=== PATIENT | male | born 1965 | race Caucasian/White ===

== ENCOUNTER 2019-01-14 15:30 | Emergency (ER) | payer BC ==
--- OUTSIDE RECORDS SUMMARY | 2019-01-14 15:35 | XMS REPORT | Continuity of Care Document ---
:1965 External Reference #:[id number] Author Name Peg Snell Care Team Providers Name Role Phone Vincent Young MD - Internal Care Team Information [place] Weaver Medicine Problems Description No Information Available Social History Type Date Description Comments Sex Unknown ETOH Use Occasionally consumes alcohol Tobacco Use Start: Unknown Patient has never smoked Allergies, Adverse Reactions, Alerts Description No Known Drug Allergies Medications Active Medications SIG Qnty Indications Ordering Provider Date Allopurinol 1 by mouth every Unknown 300mg Tablets day Lisinopril 1 by mouth every Unknown 20mg Tablets day Immunizations Description No Information Available Vital Signs Date Vital Result Comment 03/22/2015 11:58am Height 72 inches 6'0" Weight 270.00 lb Pain Level 8 BMI (Body Mass Index) 36.6 kg/m2 Results Description No Information Available Procedures Description No Information Available Medical Devices Description No Information Available Encounters Description No Information Available Assessments Description No Information Available Plan of Treatment 03/22/2015 - Kathie Hood M.D.M70.21 Olecranon bursitis, right elbowFollow up:Follow up: As needed Functional Status Description No Information Available Mental Status Description No Information Available Referrals Description No Information Available
--- OUTSIDE RECORDS SUMMARY | 2019-01-14 15:35 | XMS REPORT | Continuity of Care Document ---
:1965 External Reference #:[id number] Author Name Vincent Young M.D. Address [address] [place] [address] Care Team Providers Name Role Phone HCP given Care Team Information Cms Expert Unavailable [facility] - Care Team Information Cms Expert [phone] [facility] - Sleep [facility] Care Team Information Cms Expert [phone] Diagnostic Problems Active Problems Provider Date Benign essential hypertension Vincent Young M.D. Onset: 06/13/2011 Gout Vincent Young M.D. Onset: 06/13/2011 Pure hypercholesterolemia Vincent Young M.D. Onset: 06/13/2011 Social History Type Date Description Comments Sex Unknown Tobacco Use Reviewed: 04/22/14 Denies Cigarette Use Smoking Status Reviewed: 04/22/14 Denies Cigarette Use ETOH Use Currently consumes alcohol 3d/wk 6-8 beers Tobacco Use Start: Unknown Non Smoker / No Tobacco Allergies, Adverse Reactions, Alerts Description No Known Drug Allergies Medications Active Medications SIG Qnty Indications Ordering Date Provider Lisinopril Take One Tablet By 90tabs I10 Vincent Young, 10/18/2017 40mg Mouth Every Morning M.D. Tablets For High Blood Pressure Indomethacin 1 three times a day 50caps M10.9 Vincent Young, 10/03/2017 50mg as needed for gout M.D. Capsules flares then reduce as tolerated Atorvastatin Calcium Take One Tablet By 90tabs E78.0 Vincent Young, Mouth Once Daily M.D. 40mg Tablets For High Cholesterol Ziac Take One Tablet By 90tabs Vincent Young, 10/30/2014 2.5-6.25mg Mouth Once Daily M.D. Tablets For Blood Pressure Allopurinol Take One Tablet By 90tabs M10.9 Hector Vincent, 01/26/2010 300mg Mouth Once Daily To M.D. Tablets Prevent Gout Immunizations CPT Code Status Date Vaccine Lot # [id number] Given 11/29/2018 Influenza Virus Vaccine, Quadrivalent, Split, [id number] Preservative Free 30428 Given 10/03/2017 Td Immunization [id number] 26296 Given 12/06/2015 Influenza Virus Vaccine, Quadrivalent, Split, [id number] Preservative Free 80640 Given 12/15/2013 Flu, Split Virus 3Yrs 14213 Given 04/01/2012 Flu, Split Virus 3Yrs 07986 Given 07/15/2008 Adacel or Boostrix, TDaP Vital Signs Date Vital Result Comment 11/29/2018 11:25am BP Systolic 160 mmHg BP Diastolic 98 mmHg Weight 276.00 lb w/shoes 10/08/2018 8:56am BP Systolic 168 mmHg BP Diastolic 96 mmHg BP Systolic Recheck 154 mmHg R arm sitting BP Diastolic Recheck 108 mmHg R arm sitting Height 75 inches 6'3" Weight 282.00 lb BMI (Body Mass Index) 35.2 kg/m2 Results Test Date Facility Test Result H/L Range Note Laboratory test 11/29/2018 [facility] <pending> finding [phone] Pathology Urine Micro 10/08/2018 [facility] House [facility] WBC - 1 Inhouse [facility]a RBC - Ua Casts - [facility]a Epi - Ua Other - Ua Glucose - Ua Bilirubin - Ua Ketones - Ua Specific [place] 1.020 Ua Blood NH Tr Ua PH 6.0 Ua Protein - Ua Urobilinogen - Ua Nitrite - Ua Leukocytes - Laboratory test 10/08/2018 [facility] Pathology SEE RESULT 2 finding [phone] BELOW 1 void, clear, yellow 2 SEE RESULT BELOW Name: JOSE IBARRA : [address]: Vincent Young MD Acct: [id number] Unit: [id number] AGE: 53 Location: [facility] Re10/08/18 SEX: M Status: REG REF SPEC: [id number] REBA: 10/08/[address]: Vincent Young MD REQ: [id number] RECD: 10/08/18 STATUS: SOUT _ ORDERED: LEVEL 4, IMMUNO-FIRST, IMMUNO-ADDL COMMENTS: [id number] FINAL DIAGNOSIS Skin, right upper back, biopsy: -- Basal cell carcinoma, superficial and nodular type. -- Lesional cells extend to the biopsy base. COMMENT: Immunohistochemical stains, with appropriately reacting controls, 4 CK 5/6 and p63, were performed in the evaluation of this lesion and support the diagnosis. Dr. Queen reviewed this case in intradepartmental consultation and agrees with the diagnosis. CLINICAL HISTORY No history given GROSS DESCRIPTION The specimen is received in formalin labeled, Right Upper Back, and consists of a 0.6 x 0.5 cm lea-pink irregular hairbearing skin fragment which is inked, trisected and submitted entirely in one cassette. Signed by and Reported on: Shirley Go MD 10/10/18 1604 END OF REPORT DEPARTMENT OF PATHOLOGY, [address] [place] [address] Nicko Queen M.D. Director [facility] # [id number] Procedures Date Code Description Status 11/29/2018 65802 Excise Malig Lesion 2.1-3CM Trunk/Arm/Leg Completed 10/08/2018 48753 Electrocardiogram Complete Completed 10/08/2018 86647 Shave Skin Lesion .6-1CM Trunk/Arm/Leg Completed Medical Devices Description No Information Available Encounters Type Date Location Provider Dx Diagnosis Office Visit 10/08/2018 Main Office Vincent Young I10 Essential ( primary) 8:55a M.D. hypertension E78.00 Pure hypercholesterolemia, unspecified M10.9 Gout, unspecified D48.5 Neoplasm of uncertain behavior of skin Z12.11 Encounter for screening for malignant neoplasm of colon E66.9 Obesity, unspecified Z00.01 Encounter for general adult medical exam w abnormal findings Z68.35 Body mass index (BMI) 35.0-35.9, adult Assessments Date Code Description Provider 11/29/2018 C44.519 Basal cell carcinoma of skin of other part Vincent Young M.D. of trunk 11/29/2018 Z23 Encounter for immunization Vincent Young M.D. 11/29/2018 Z41.8 Encounter for other procedures for purposes Vincent Young M.D. other than remedying health state 11/29/2018 I10 Essential (primary) hypertension Vincent Young M.D. 10/08/2018 I10 Essential (primary) hypertension Vincent Young M.D. 10/08/2018 E78.00 Pure hypercholesterolemia, unspecified Vincent Young M.D. 10/08/2018 M10.9 Gout, unspecified Vincent Young M.D. 10/08/2018 D48.5 Neoplasm of uncertain behavior of skin Vincent Young M.D. 10/08/2018 Z12.11 Encounter for screening for malignant Vincent Young M.D. neoplasm of colon 10/08/2018 E66.9 Obesity, unspecified Vincent Young M.D. 10/08/2018 Z00.01 Encounter for general adult medical Vincent Young M.D. examination with abnormal findings 10/08/2018 Z68.35 Body mass index (BMI) 35.0-35.9, adult Vincent Young M.D. Plan of Treatment 11/29/2018 - Vincent Young M.D.C44.519 Basal cell carcinoma of skin of other part of trunkComments:Procedure note: An elliptical outline was made surrounding the area of concern on his R upper back using a black Sharpie marker. After a sterile betadine prep and local anesthesia w/ approx 4cc xylo w / epi. The lesion was removed by elliptical excision. The tissue removed was marked w/ a single tie at 9 o'clock. The wound bed was 3cm in length. It was closed w/ 6 interrupted 4-0 Ethilon sutures. Counseled re post op care. He will have his remove the sutures in 14 days. He will report back if any signs of infection develop.Follow up:Have Cassy remove the stitches in 14 daysZ23 Encounter for immunizationComments:Encouraged flu vaccine wc was accepted. VIS provided.Z41.8 Encounter for other procedures for purposes other than remedying health [id number] Essential (primary) hypertensionComments:Poorly controlled. Given current Tx and how high is BP is there is concern for secondary cause. 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 Please consider for RAHAT eval and Tx Assume Management this Problem Only - Follow up needed [facility] [address], [address] [place] [address] [phone]
[2019-01-14 15:48] VITALS: BP 128/77
--- NOTE | 2019-01-14 16:41 | UC ---
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 He sustained a mild abrasion there. He has been ambulatory. This caused a contusion to the area. - History of Current Complaint Chief Complaint: UCLowerExtremity Stated Complaint: knee INJURY Time Seen by Provider: 01/14/19 16:40 Hx Obtained From: Patient Onset/Duration: Sudden Onset Severity Initially: Mild Severity Currently: Mild Pain Intensity: 7 Character: Dull, Aching Aggravating Factor(s): Weight Bearing Alleviating Factor(s): Rest Associated Signs And Symptoms: Positive: Bruising - Patient also has a mild abrasion to the area. Able to Bear Weight: Yes - Allergies/Home Medications Allergies/Adverse Reactions: Allergies Allergy/AdvReac Type Severity Reaction Status Date / Time No Known Allergies Allergy Verified 01/14/19 15:48 Home Medications: Home Medications Bisoprolol Fumarate 2.5 mg PO DAILY 01/14/19 [History Confirmed 01/14/19] PMH/Surg Hx/FS Hx/Imm Hx Previously Healthy: Yes Cardiovascular History: Hypertension - Surgical History Surgical History: None - Family History Known Family History: Positive: Hypertension - Social History Occupation: Employed Full-time Lives: With Family Alcohol Use: Weekly Alcohol Amount: few days a week Substance Use Type: None Smoking Status (MU): Never Smoked Tobacco - Immunization History Most Recent Influenza Vaccination: never Most Recent Tetanus Shot: Within 10 years Most Recent Pneumonia Vaccination: Never Review of Systems All Other Systems Reviewed And Are Negative: Yes Skin: Positive: Bruising - Mild bruise with an abrasion just below his left knee. Musculoskeletal: Positive: Other: - Most tenderness is right over the bruise. Is Patient Immunocompromised?: No Physical Exam Triage Information Reviewed: Yes Appearance: Well-Appearing, No Pain Distress, Well-Nourished Vital Signs: Initial Vital Signs Temp 98.1 F 01/14/19 15:43 Pulse 79 01/14/19 15:43 Resp 16 01/14/19 15:43 BP 128/77 01/14/19 15:43 Pulse Ox 98 01/14/19 15:43 Vital Signs Reviewed: Yes Musculoskeletal Exam: Normal Neurological Exam: Normal Psychological Exam: Normal Skin: Positive: Other - Abrasion noted just below left knee approximately 2.5 cm in diameter with bruising noted and very minimal swelling. Very minimally warm to touch, no streaking, the surrounding area of the knee is not swollen. Patient has full range of motion, good peripheral pulses neuro sensation capillary refill. Knee Pain Course/Dx - Course Course Of Treatment: X-ray was negative. Patient can continue to apply ice intermittently and ambulate as pain permits. He may take Tylenol or Advil for pain. Definite follow-up with the orthopedist in 4 or 5 days if no improvement or if his primary care provider if he develops a cellulitis with increasing redness, increasing tenderness or red streaks or increased swelling. - Differential Dx/Diagnosis Provider Diagnosis: Contusion of left leg Discharge ED - Sign-Out/Discharge Documenting (check all that apply): Patient Departure All imaging exams completed and their final reports reviewed: Yes - Discharge Plan Condition: Good Disposition: HOME Patient Education Materials: Contusion in Adults (ED) Referrals: Vincent Young MD [Primary Care Provider] - Additional Instructions: Apply ice to the sore area and elevate as much as possible. May take Tylenol or Advil for pain. Definite follow-up with your primary care provider or an orthopedist if no improvement in 4 or 5 days or if you develop a larger area of redness, tenderness, swelling or red streaks up your leg. - Billing Disposition and Condition Condition: GOOD Disposition: Home
== END 2019-01-14 17:00 | disposition home or self-care (01) ==
LOC: UCEAST 15:30
DX: S80.12XA Contusion of left lower leg, initial encounter (principal); I10 Essential (primary) hypertension; Z79.899 Other long term (current) drug therapy; W21.89XA Striking against or struck by other sports equipment, initial encounter; Y93.66 Activity, soccer; Y92.9 Unspecified place or not applicable
CPT/HCPCS: 99211; G0463

== ENCOUNTER 2024-04-11 05:52 | Observation (INO) ==
[~2024-04-11 05:52] MED LIST: Metoclopramide 5 MG/ML VIAL (10 mg) IV PRN; Naloxone 0.4 mg VIAL 0.4 mg/ml 1 ml VIAL IV PRN; Ondansetron 4 mg VIAL 2 MG/ML 2 ml VIAL IV PRN; ROPIVACAINE 5 MG/ML 30 ML BTL (0.5%) ONE; fentaNYL 100 mcg/2 ml 50 MCG/ML VIAL IV PRN
[2024-04-11] MEDS: Buffered Lidocaine 1% SYRIN 1 ml INTRADERM ONE (06:09)
[2024-04-11] MEDS ORDERED: ceFAZolin 2 GM PREMIX 2 GM/50 ML BAG ONE (06:10)
[2024-04-11] MEDS ORDERED: Tranexamic Acid 1 GM/100ML BAG 2,000 MG/200 ML BAG IV ONE (06:10)
[2024-04-11] MEDS ORDERED: ceFAZolin 1 GM in Dextrose 1 GM/50 ML BAG ONE (06:10)
[2024-04-11] MEDS ORDERED: Dexamethasone IV 4 MG/ML VIAL 1 ml VIAL ONE (06:17)
[2024-04-11] MEDS ORDERED: fentaNYL 100 mcg/2 ml 50 MCG/ML VIAL ONE (06:17)
[2024-04-11] MEDS ORDERED: Midazolam 2 mg/2 ml VIAL 1 mg/ml 2 ml VIAL (2 mg) ONE (06:17)
[2024-04-11] MEDS ORDERED: Ondansetron 4 mg VIAL 2 MG/ML 2 ml VIAL ONE (06:17)
[2024-04-11] MEDS ORDERED: Phenylephrine IV 10 MG/ML 1 ml VIAL ONE (06:17)
[2024-04-11] MEDS ORDERED: Lidocaine 2% PF 5 ML VIAL ONE (06:17)
[2024-04-11] MEDS ORDERED: Glycopyrrolate IV 0.2 MG/ML 1 ML VIAL ONE (06:17)
[2024-04-11] MEDS: Scopolamine 1 mg/72hr PATCH TRANSDERM ONE (06:30)
[2024-04-11 06:32] LABS: Rapid COVID-19 Molecular Undetected (Undetected)
[2024-04-11] MEDS ORDERED: Lidocaine 2% PF 10 ML AMP (OR) ONE (07:56)
[2024-04-11] MEDS ORDERED: Propofol 10 MG/ML 20 ML BTL ONE ×2 (09:28→10:13)
[2024-04-11] MEDS ORDERED: Calcium Carb (TUMS) 500 mg CHEW TAB PO PRN (10:56)
[2024-04-11] MEDS ORDERED: Ondansetron ODT 4 mg TAB 4 MG TAB PO PRN (10:56)
[2024-04-11] MEDS ORDERED: Lactulose 30 ml UDC PO PRN (10:56)
[2024-04-11] MEDS ORDERED: Magnesium Hydroxide LIQ 30 ML UDC PO PRN (10:56)
[2024-04-11] MEDS ORDERED: Ondansetron 4 mg VIAL 2 MG/ML 2 ml VIAL IV PRN (10:56)
[2024-04-11] MEDS ORDERED: Morphine 2 MG/ML SYRINGE IV PRN (10:56)
[2024-04-11] MEDS: Lactated Ringers 1000 ml BAG 1,000 ML IV SCH ×2 (14:00→15:21)
[2024-04-11 14:02] VITALS: BP 122/98
[2024-04-11] MEDS: ceFAZolin 2 GM PREMIX 2 GM/50 ML BAG IV ONE (16:06)
[2024-04-11] MEDS: Acetaminophen IV 1 GM/100ML 1,000 MG/100 ML BAG IV ONE (16:22)
[2024-04-11] MEDS: ceFAZolin 1 GM in Dextrose 1 GM/50 ML BAG IVPB ONE (16:51)
[2024-04-11] MEDS ORDERED: Magnesium Hydroxide LIQ 30 ML UDC PO SCH (21:00)
[2024-04-12] MEDS ORDERED: Vitamin THERAPEUTIC TAB PO SCH (09:00)
== END 2024-04-11 18:20 | disposition home or self-care (01) ==
LOC: SSU 05:52 → OR 05:52
PROVIDERS: ADMIT Orthopaedic Surgery Adult Reconstructive Orthopaedic Surgery; ATTEND Orthopaedic Surgery Adult Reconstructive Orthopaedic Surgery